=== PATIENT | female | born 1985 | race Caucasian/White ===

== ENCOUNTER 2021-01-06 16:38 | Outpatient (CLI) | payer BC, SELFPAY | END 2021-01-06 20:06 | disposition home or self-care (01) | LOC: SLB 16:38 | PROVIDERS: ATTEND Otolaryngology | DX: Z20.822 Contact with and (suspected) exposure to COVID-19 (principal) | CPT/HCPCS: C9803; U0003 ==

== ENCOUNTER 2021-10-24 11:07 | Outpatient (CLI) | payer SELFPAY | END 2021-10-24 19:02 | disposition home or self-care (01) | LOC: SLB 11:07 | PROVIDERS: ATTEND Internal Medicine Hospice and Palliative Medicine | DX: U07.1 COVID-19 (principal) | CPT/HCPCS: C9803; U0003 ==